=== PATIENT | male | born 1945 | race Caucasian/White ===

== ENCOUNTER 2025-04-11 14:33 | Outpatient (AMB) | payer MEDICARE, OTHER, SELFPAY ==
--- NOTE | 2025-04-11 14:46 | A.OFFVIS_ITS ---
Vital Signs 04/11/25 14:52 Height 5 ft 6 in Weight 188 lb BMI 30.3 BP 130/78 Blood Pressure Location Rt brachial Position Sitting Intake Visit Reasons: ENP-Restless Legs Intake Note: Patient referred for restless leg Allergies No Known Allergies Allergy (Verified 04/11/25 14:47) Medication List - Last Reconciled 04/11/25 by Libertad Rausch MD allopurinol mg PO amlodipine mg PO DAILY atorvastatin mg PO DAILY calcium carbonate (Calcium 600) 600 mg PO DAILY carboxymethylcellulose sodium 0.5% (Refresh Tears) 1 drp ophthalmic (eye) BID citalopram mg PO DAILY famotidine mg PO DAILY glucosamine HCl 1,500 mg PO DAILY hydrochlorothiazide mg PO DAILY HPI Comments Details: 79y/o male comes for evaluation of restless legs. It started more than 5 years where he feels leg spasms, leg movements, discomfort at rest, when he is trying to sleep. He feels like he needs to stretch or walk.ABout 6 mths ago his sciatica worsened which made his nocturnal legs spasms worse.His sciatica is better since he started with chiropractor which also improved his restless legs.He denies any creepy crawly sensations. He is sleeping OK now . He still has restless legs -starts around 60min after he goes to bed. He goes to bed at 12 am and the restless starts at 1 am and he walks around for 2-3 minutes and is able to fall sleep.He has loud snoring and has daytime sleepiness COUNT INCLUDES THE [facility] Medical History (Updated 04/11/25 @ 15:11 by Libertad Rausch MD) Hypersomnia Snoring GERD (gastroesophageal reflux disease) Cervicalgia Aortic anomaly Restless leg syndrome Sciatica of left side Gout Dyslipidemia Essential hypertension Tubular adenoma of colon Aortic dilatation Anxiety Allergic rhinitis Surgical History H/O hernia repair History of bunionectomy Social History Alcohol intake: never Patient Tobacco Use Status: Never used Tobacco Physical Exam Const General: cooperative, healthy appearing and comfortable Nutritional Appearance: overweight Orientation/consciousness: patient oriented x3 Eyes Pupils: Equal, round and reactive pupils present Neuro General: patient oriented x3, gait normal, tone normal, moves all extremities and no focal motor deficits Cranial nerves: Yes Facial sensation intact/muscles of mastication intact, Yes Equal, round and reactive pupils present, Yes Bilaterally intact EOM present, Yes Nystagmus not present, Yes Normal facial strength present, Yes Midline tongue present, Yes Symmetric palate elevation present and Yes Ability to bilaterally elevate shoulders present Cognition (Neuro): normal cognition Gait exam (Neuro): Normal gait present Motor exam (neuro): 5/5 motor strength present throughout and Normal motor muscle tone present throughout Deep tendon reflexes (DTR's): Right triceps reflex intensity grade: 1+, Left triceps reflex intensity grade: 1+, Rt Biceps (C5, C6): 1+, Left biceps reflex intensity grade: 1+, Right brachioradialis reflex intensity grade: 1+, Left brachioradialis reflex intensity grade: 1+, Right patellar reflex intensity grade: 2+ and Left patellar reflex intensity grade: 0 Coordination: [id number] test normal Assessment & Plan Assessment & Plan (1) Restless leg syndrome: Code(s): G25.81 - Restless legs syndrome Category: Medical (2) Snoring: Code(s): R06.83 - Snoring Category: Medical (3) Hypersomnia: Code(s): G47.10 - Hypersomnia, unspecified Category: Medical Plan He declines any medication OTC magnesium is helping his symptoms I will do a sleep study to evaluate for sleep apnea, PLMD Labs - B 12 tsh ferritin Vit D esr and cbc cmp. Orders: Orders RT PSG in-lab sleep study Today G25.81 - Restless legs syndrome, G47.10 - Hypersomnia, unspecified, R06.83 - Snoring Vitamin B12 and Folate Today G25.81 - Restless legs syndrome, G47.10 - Hypersomnia, unspecified Erythrocyte Sedimentation Rate Today G25.81 - Restless legs syndrome, G47.10 - Hypersomnia, unspecified Comprehensive Met. Panel Today G25.81 - Restless legs syndrome, G47.10 - Hypersomnia, unspecified Complete Blood Count Auto Diff Today G25.81 - Restless legs syndrome, G47.10 - Hypersomnia, unspecified TSH reflex Free T4 Today G25.81 - Restless legs syndrome, G47.10 - Hypersomnia, unspecified Vitamin D 25-OH (D2 and D3) Today G25.81 - Restless legs syndrome, G47.10 - Hypersomnia, unspecified Ferritin Today G25.81 - Restless legs syndrome, G47.10 - Hypersomnia, unspecified Coding Level of Care Code New Pt Level 4 (35770) Diagnoses Restless leg syndrome G25.81 Snoring R06.83 Hypersomnia G47.10
[2025-04-11 14:52] VITALS: BP 130/78; BMI 30.3
--- OUTSIDE RECORDS SUMMARY | 2025-04-11 16:15 | XMS_ITS | Clinical Summary ---
Author Organization [facility] Address [address] [place] [address] Phone Care Team Providers Care Beet Flumer Name Role Phone Cathy Page MD Primary Care Provider [phone] Allergies Active Allergy Reactions Criticality Noted Date Comments Other 03/03/2019 Seasonal allergies Medications cyclobenzaprine (FLEXERIL) 10 mg tablet Sig - Route: Take 1 Tablet by mouth daily. Prescribe by ROMMEL MCNULTY Active cetirizine (ZyrTEC) 10 mg tablet Take 1 Tablet by mouth daily. OTC Active multivitamin (MULTIPLE VITAMINS ORAL) Take 1 tablet by mouth 1 (one) time each day. Active glucosamine-cho ndroit-vit C-Mn (Glucosamine-Ch ondroitin Complx) capsule Glucosamine-Ch ondroit-Vit C-Mn (GLUCOSAMINE CHONDR 1500 COMPLX OR)-Take 1 tablet by mouth. Active polyvinyl alcohol/povidon e/PF (REFRESH CLASSIC, PF, OPHT) apply 1 Drop to the eye 2 times daily. Active hydrocortisone (ANUSOL-HC) [address] 1 Suppository rectally 2 times daily for 10 days. 04/17/20 17 Active omega-3 fatty acids 500 mg capsule 1 tablet 3 times daily Active citalopram (CeleXA) 10 mg tablet TAKE 1 TABLET BY MOUTH EVERY DAY 90 tablet 1 11/29/19 25 Active hydroCHLOROthia zide (MICROZIDE) 12.5 mg capsule TAKE 1 CAPSULE BY MOUTH EVERY DAY 90 capsule 1 01/04/20 25 Active allopurinoL (ZYLOPRIM) 100 mg tablet TAKE 3 TABLETS BY MOUTH EVERY DAY 270 tablet 1 01/04/20 25 Active amLODIPine (NORVASC) 5 mg tablet TAKE 1 TABLET BY MOUTH EVERY DAY 90 tablet 1 01/07/20 25 Active atorvastatin (LIPITOR) 10 mg tablet TAKE 1 TABLET BY MOUTH EVERY DAY 90 tablet 04/05/20 25 Active famotidine (PEPCID) 40 mg tablet TAKE 1 TABLET BY MOUTH EVERY DAY 90 tablet 04/05/20 25 Active famotidine (PEPCID) 40 mg tablet Take 1 tablet (40 mg total) by mouth 1 (one) time each day. 07/23/20 24 025 Discontinued atorvastatin (LIPITOR) 10 mg tablet Take 1 tablet (10 mg total) by mouth 1 (one) time each day. 05/17/20 24 025 Discontinued Active Problems Problem Noted Date Diagnosed Date Tubular adenoma of colon 08/13/2024 Thyroid nodule 06/04/2023 Aortic dilatation (CMS/HCC V24) 10/09/2020 Overview (08/13/2024): 4.1 cm, 2019 Branch retinal artery occlusion of right eye Overview (08/13/2024): 2020 Dr. Ramu Moreira patient also with macular degeneration in each eye and a posterior vitreous detachment in both eyes Essential hypertension 03/03/2019 Allergic rhinitis due to allergen 06/16/2015 Syncope 11/11/2014 Overview (08/13/2024): Likely vasovagal, tilt table test 2014 Ventral hernia 06/22/2014 Epididymal cyst 11/23/2012 Overview (08/13/2024): on right, asymptomatic Anxiety 11/01/2011 Dyslipidemia 10/08/2011 Overview (08/13/2024): High TG, Low dose statin caused LDL =30. Not on any statin Gout 05/07/2011 GERD (gastroesophageal reflux disease) 0 Overview (08/13/2024): EGD visually normal on 12/21/2010 on PPI rx, esophageal bx: Esophageal biopsies normal. Nonspecific abnormal finding in stool contents 0 03/22/2010 Colon polyps 07/18/2008 Overview (08/13/2024): Colonoscopy by Dr. Leiva 2005, solitary hyperplastic polyp. Small polyps x 2 at CN 03/29/2010: Cecal polyp was a tubular adenoma, sigmoid colon polyp was just polypoid normal mucosa. Colonoscopy again in 5 years Gastritis 07/18/2008 Overview (08/13/2024): S/P EGD, Dr. Leiva. Cervicalgia 10/16/2006 Overview (08/13/2024): IMPRESSION: Degenerative changes most advanced at the C5 through C7 disc spaces. Moderate to severe neural foraminal narrowing at C6-7 bilaterally and C5-6 on the right. Immunizations Name Administration Dates Next Due H1N1 Inj Preservative Free 10/31/2009 Influenza trivalent, 0.5mL ( Fluad) 65yo and older 07/12/2024,07/21/2023,07/15/2022,06/26,07/19/2020,07/24/2012,08/14/2011 ,07/23/2010,07/22/2009,08/24/2007,09/26 Influenza trivalent, 0.5mL, preservative free (Fluarix; FluLaval; Fluzone) ages 6mo and older (Afluria) 3 years and older 07/18/2008,10/14/2005 Influenza, Unspecified 07/14/2024,2022,07/24/2017,08/17 Moderna SARS-CoV-2 COVID-19, mRNA, LNP-S, preservative free 07/14/2024 Pfizer SARS-CoV-2 COVID-19, mRNA, LNP-S, preservative free 06/27/2021 Pneumococcal conjugate 13 va lent (Prevnar 13, PCV13) 2mo and older 02/25/2017 Pneumococcal polysaccharide 23 valent (Pneumovax 23) 2yo and older 06/22/2014,07/16/2007,10/14/2005 Respiratory syncytial virus (RSV), unspecified 10/15/2023 Td Tetanus diptheria (Tdvax) 7yo and older 10/31/2009 Tdap Tetanus diptheria acell ular pertussis (Boostrix; Adacel) 7yo and older 07/22/2024,11/23/2012 Zoster Live 12/23/2012 Zoster recombinant (Shingrix ) 19yo and older 10/11/2024,06/01/2024 Surgical History Surgery Date Site/Laterality Comments COLONOSCOPY 2005 PROCEDURE: HISTORICAL COLONOSCOPY; COMMENT: hyperplastic polyp. ESOPHAGOGASTRODUODENOSCOPY 2005 PROCEDURE: GA EGD TRANSORAL BIOPSY SINGLE/MULTIPLE; COMMENT: Esophagus normal, not on PPI treatment. Gastric biopsies negative for H. pylori. COLONOSCOPY 03/29/2010 PROCEDURE: HISTORICAL COLONOSCOPY; COMMENT: 2 small polyps: Tubular adenoma x 1, normal colonic mucosa x 1. ESOPHAGOGASTRODUODENOSCOPY 12/21/2010 PROCEDURE: GA EGD TRANSORAL BIOPSY SINGLE/MULTIPLE; COMMENT: Visually normal; esophageal bx: Esophageal biopsies normal. CATARACT EXTRACTION PROCEDURE: HISTORICAL CATARACT REMOVAL; COMMENT: bilateral COLONOSCOPY 07/18/2015 PROCEDURE: HISTORICAL COLONOSCOPY; COMMENT: 7 mm left colon polyp: tubular adenoma. Medical History Medical History Date Comments Cervicalgia 10/16/2006 DX:Cervicalgia; COMMENT: IMPRESSION: Degenerative changes most advanced at the C5 through C7 disc spaces. Moderate to severe neural foraminal narrowing at C6-7 bilaterally and C5-6 on the right. Gastritis 07/18/2008 DX:Gastritis; CO MMENT: S/P EGD, Dr. Leiva Colon polyps 07/18/2008 DX:Colon polyps; COMMENT: Colonoscopy by Dr. Leiva, due again 2009 GERD (gastroesophageal reflux disease) 03/22/2010 DX:GERD (gastroesophageal reflux disease) Epididymal cyst 11/23/2012 DX:Epididymal cy st Syncope 11/11/2014 DX:Syncope; COMM ENT: Likely vasovagal, tilt table test 2014 Hyperlipidemia 10/08/2011 DX:Hyperlipidemi a; COMMENT: Low dose statin caused LDL =30. Not on any statin Essential hypertension 03/03/2019 DX:Essent ial hypertension Tubular adenoma of colon DX:Tubu lar adenoma of colon Thyroid nodule 06/04/2023 DX:Thyroid nodul e Family History Medical History Relation Name Comments No Known Problems Aunt No Known Problems Brother No Known Problems Father No Known Problems Maternal Grandfather No Known Problems Maternal Grandmother Other: liver disease Mother pt can not specify, ? lead No Known Problems Other No Known Problems Paternal Grandfather Glaucoma Paternal Grandmother No Known Problems Sister No Known Problems Uncle Blindness Neg Hx Cataracts Neg Hx Macular degeneration Neg Hx Strabismus Neg Hx Relation Name Status Comments Aunt Brother Father Maternal Grandfather Maternal Grandmother Mother Other Paternal Grandfather Paternal Grandmother Sister Uncle Social History Tobacco Use Types Packs/Day Years Used Date Smoking Tobacco: Former Cigarettes Q uit: 10/27/2001 Smokeless Tobacco: Never Tobacco Cessation:Counseling Given: Not Answered Alcohol Use Standard Drinks/Week Comments No 0 (1 standard drink = 0.6 oz pur e alcohol) Housing Instability Answer Date Recorde d Are you worried that in the next 2 months you may not have stable housing? No 09/27/2024 Food Access & Nutrition Answer Date Rec orded Do you have access to a vari ety of food including fruits and vegetables? Yes 09/27/2024 Access to Healthcare Answer Date Record ed Within the last 3 months, ho lesly many times did you visit the emergency department for your medical care? 0 09/27/2024 Health Literacy Answer Date Recorded How often do you need to hav e someone help you when you read instructions, pamphlets, or other written material from your doctor or pharmacy? Never 09/27/2024 Caregiver: How often do you need to have someone help you when you read instructions, pamphlets, or other written material from your doctor or pharmacy? Not on file 09/27/2024 Financial Risk Answer Date Recorded How hard is it for you to pa y for the very basics like food, housing, medical care, and air conditioning / heating? Patient declined 09/27/2024 Transportation Answer Date Recorded Has the lack of transportati on kept you from meetings, work, or from getting things needed for daily living? No 09/27/2024 Has the lack of transportati on kept you from medical appointments or from getting medications? Patient declined 09/27/2024 Social Isolation Answer Date Recorded How often do you feel lonely or isolated from th ose around you? Never 09/27/2024 Food Risk Answer Date Recorded Within the past 12 months we worried whether our food would run out before we got money to buy more. Never true 09/27/2024 Within the past 12 months th e food we bought just didn't last and we didn't have money to get more. Never true 09/27/2024 Dependent Care Answer Date Recorded Do you need help finding or paying for care for your loved ones. For example, child welfare counselor or elderly care for an older adult? Patient declined 09/27/2024 Education Answer Date Recorded Do you think completing more education or training, like finishing a GED, going to college, or learning a trade, would be helpful for you? N/A 09/27/2024 Employment and Income Answer Date Recor ded During the last four weeks, have you been actively looking for work? Patient declined 09/27/2024 Living Situation Answer Date Recorded What is your living situation? 1 11/28/2023 Sex and Gender Information Value Date Recorded Sex Assigned at Not on file Legal Sex Male 6:46 PM EST Gender Identity Not on file Sexual Orientation Not on file Obstetrics History Last Filed Vital Signs Vital Sign Reading Time Taken Comments Blood Pressure 122/68 01/04/2025 1:08 PM EDT Pulse 64 09/29/2024 2:38 PM EST Temperature 36.1 ??C (96.9 ??F) 09/29/2024 2:38 PM ES T Respiratory Rate 12 09/29/2024 2:38 PM EST Oxygen Saturation - - Inhaled Oxygen Concentration - - Weight 85.3 kg (188 lb) 01/04/2025 1:08 PM EDT Height 167.6 cm (5' 6 ) 01/04/2025 1:08 PM EDT Body Mass Index 30.34 01/04/2025 1:08 PM EDT Plan of Treatment Upcoming Encounters Date Type Department Care Team (Late st Contact Info) Description 06/14/2025 9:00 AM EDT Office Visit Adult Medicine [facility] [address] [place] [address] Cathy Page MD [address] [place] [address] Health Maintenance Due Date Last Done Comments RSV Immunization Adult Patients (1 - 1-dose 75+ series) 2019 10/15/2023 Medicare Annual Wellness Visit 11/17/2024 11/17/2023 COVID-19 Vaccine ( season) 2025 07/14/2024, 07/12/2024, 07/21/2023, Additional history exists Hypertension/CHF/CAD Annual BMP Blood Test 09/20/2025 09/20/2024, 11/12/2023 Depression Screening 09/27/2025 09/27/2024, 11/17/19 24 Social Influencers of Health Screening 09/27/2025 09/27/2024 Falls Risk Assessment 09/29/2025 09/29/2024, 024 Colorectal Cancer Screening: Colonoscopy 12/13/2026 12/13/2021 Cholesterol Screening (Lipid Panel) 11/12/2028 11/12/2023 DTaP,Tdap,and Td Vaccines (4 - Td or Tdap) 07/22/2034 07/22/2024, 11/23/2012, 10/31/2009 Pneumococcal Vaccine: 50+ Years Completed 02/25/2017, 06/22/2014, 07/16/2007, Additional history exists RSV Immunization Patients Under 20 months Aged Out 10/15/2023 No longer eligible based on patient's age to complete this topic Influenza Vaccine Completed 07/14/2024, , 07/21/2023, Additional history exists Zoster Vaccines Completed 10/11/2024, 03/2024, 12/23/2012 HIB Vaccines Aged Out No longer eligi ble based on patient's age to complete this topic HPV Vaccines Aged Out No longer eligi ble based on patient's age to complete this topic Hepatitis A Vaccines Aged Out No long er eligible based on patient's age to complete this topic Hepatitis B Vaccines Aged Out No long er eligible based on patient's age to complete this topic IPV Vaccines Aged Out No longer eligi ble based on patient's age to complete this topic MMR Vaccines Aged Out No longer eligi ble based on patient's age to complete this topic Meningococcal ACWY Vaccine Aged Out N o longer eligible based on patient's age to complete this topic Meningococcal B Vaccine Aged Out No l onger eligible based on patient's age to complete this topic Varicella Vaccines Aged Out No longer eligible based on patient's age to complete this topic Procedures Procedure Name Priority Date/Time Associated Diagnosis Comments BASIC METABOLIC PANEL Routine 09/20/2024 2:22 PM EST Blood glucose elevated DEPRESSION SCREENING Routine 11/17/2023 FALLS RISK ASSESSMENT Routine 11/17/2023 LIPID PANEL Routine 11/12/2023 HM COLONOSCOPY Routine 12/13/2021 from Last 3 Months or Most Recently Relevant to Health Maintenance Results * (ABNORMAL) Basic metabolic panel (09/20/2024 2:22 PM EST) Sodium 142 133 - 145 mmol/L LAB CHEMISTRY METHOD 09/20/2024 7:[address] [facility] Potassium 3.5 3.5 - 5.5 mmol/L LAB CHEMISTRY METHOD 09/20/2024 7:[address] [facility] Chloride 108 96 - 110 mmol/L LAB CHEMISTRY METHOD 09/20/2024 7:[address] [facility] CO2 27 21 - 32 mmol/L LAB CHEMISTRY METHOD 09/20/2024 7:[address] [facility] Anion Gap 7 3 - 11 LAB CHEMISTRY METHOD 09/20/2024 7:[address] [facility] Glucose 171(H) 70 - 100 mg/dL LAB CHEMISTRY METHOD 09/20/2024 7:[address] [facility] BUN 18 5 - 25 mg/dL LAB CHEMISTRY METHOD 09/20/2024 7:[address] [facility] Creatinine 1.26 0.70 - 1.30 mg/dL LAB CHEMISTRY METHOD 09/20/2024 7:[address] [facility] eGFR 58(L) >=60 mL/min/1. 73m2 LAB CHEMISTRY METHOD 09/20/2024 7:[address] [facility] Comment:Calculation based on the??Chronic Kidney Disease Epidemiology Collaboration (CKD-EPI) equation refit??without adjustment for race. BUN/Creatinine Ratio 14.3 LAB CHEMISTRY METHOD 09/20/2024 7:15 PM EST [facility] Calcium 9.7 8.5 - 10.5 mg/dL LAB CHEMISTRY METHOD 09/20/2024 7:15 PM EST [facility] Blood Venous blood specimen / Unknown Venipuncture / Unknown 09/20/2024 2:22 PM EST 09/20/2024 2:22 PM EST Cathy Page MD LAB BLOOD ORDERABLES Final Resul t [facility] [address] [place] [address], * Falls Risk Assessment (11/17/2023) Pathologist [facility] Falls Risk Assessment abstracted Historical Provider HEALTH MAINTENANCE Final Result * Depression Screening (11/17/2023) Pathologist [facility] Depression Screening abstracted Historical Provider HEALTH MAINTENANCE Final Result * (ABNORMAL) Lipid panel (11/12/2023) Pathologist [facility] LDL/HDL Ratio 4 0 - 4 Triglycerides 242(A) 0 - 150 mg/dL Cholesterol 154 0 - 200 mg/dL HDL 43 >=40 mg/dL LDL Cholesterol 63 0 - 100 mg/dL Blood Venous blood specimen / Unknown Historical Provider LAB BLOOD ORDERABLES Ayanna l Result * Colonoscopy (12/13/2021) Pathologist [facility] Colonoscopy no interpretation , abstracted Anatomical Region Laterality Modality Other Historical Provider HEALTH MAINTENANCE Final Result from Last 3 Months or Most Recently Relevant to Health Maintenance Insurance MEDICARE [facility] [address] [place] [id number] Care Teams Beet Flumer Relationship Specialty Start Date End Date Cathy Page MD [address] [place] [address] PCP - General 10/05/00
== END 2025-04-11 15:15 | disposition home or self-care (01) ==
LOC: HO.HSMS 14:34
PROVIDERS: PCP Internal Medicine; Visit Provider Psychiatry & Neurology Neurology
DX: G25.81 Restless legs syndrome (principal); R06.83 Snoring; G47.10 Hypersomnia, unspecified
CPT/HCPCS: 99204

== ENCOUNTER 2025-04-11 14:33 | Outpatient (REF) | payer OTHER, MEDICARE, SELFPAY ==
[2025-04-11 17:44] LABS: MANUAL DIFF FLAG NO
[2025-04-11 17:51] LABS: Basophils Absolute Auto 0.1 X10*3/uL (0.0-0.2); Basophils Percent Auto 1.3 % (0-2); Eosinophils Absolute Auto 0.6 X10*3/uL (0.0-0.4); Eosinophils Percent Auto 7.5 % (0-4); Hematocrit 45.1 % (42.0-52.0); Hemoglobin 15.8 g/dl (14.0-18.0); Imm Gran Abs Auto 0.01 X10*3/uL (0.00-0.03); Imm Gran Pct Auto 0.1 % (0.0-0.4); Lymphocytes Percent Auto 26.8 % (20-40); Mean Corpuscular Hemoglobin 32.9 pg (27.0-33.0); Monocytes Percent Auto 13.2 % (2-11); Neutrophils Absolute Auto 3.8 x10*3/uL (2.0-8.3); Neutrophils Percent Auto 51.1 % (45-73); Platelet Count 221 X10*3/uL (160-400); Red Cell Distribution Width 13.2 % (11.0-16.0); White Blood Count 7.5 X10*3/uL (4.8-10.8)
[2025-04-11 18:11] LABS: Albumin Level 4.5 g/dL (3.5-5.0); Alkaline Phosphatase 88 U/L (39-117); Anion Gap 12 (12-20); Aspartate Amino Transferase 48 U/L (5-37); Blood Urea Nitrogen 16 mg/dL (9-16); Calcium 9.7 mg/dL (8.4-10.2); Carbon Dioxide 27 mmol/L (22-29); Chloride 108 mmol/L (96-108); Estimated Glomerular Filt Rate > 60; Glucose Random 66 mg/dL (60-115); Potassium 3.8 mmol/L (3.3-5.1); Sodium 143 mmol/L (135-145); Total Protein 7.3 g/dL (6.5-8.0)
[2025-04-11 18:13] LABS: Alanine Aminotransferase 65 U/L (0-40)
[2025-04-11 18:24] LABS: Ferritin 121 ng/mL (20-250)
[2025-04-11 18:34] LABS: Erythrocyte Sedimentation Rate 2 MM/HR (0-15)
[2025-04-11 18:38] LABS: Folate 14.9 ng/mL (> or = 4.0); Vitamin B12 542 pg/mL (200-900)
[2025-04-15 15:24] LABS: Vitamin D 25-OH, D2 <4 ng/mL; Vitamin D 25-OH, D3 33 ng/mL; Vitamin D 25-OH, Total 33 ng/mL (30-100)
== END 2025-04-11 14:34 | disposition home or self-care (01) ==
LOC: HO.HKASLDS 14:33
PROVIDERS: PCP Internal Medicine; Visit Provider Psychiatry & Neurology Neurology
DX: G47.10 Hypersomnia, unspecified (principal); G25.81 Restless legs syndrome
CPT/HCPCS: 36415; 80053; 82306; 82607; 82728; 82746; 84443; 85025; 85652

== ENCOUNTER → 2025-05-02 20:30 | Outpatient (REF) | payer MEDICARE, OTHER, SELFPAY | LOC: HO.SL 20:30 | PROVIDERS: PCP Internal Medicine; Visit Provider Psychiatry & Neurology Neurology | DX: G25.81 Restless legs syndrome (principal); G47.10 Hypersomnia, unspecified; R06.83 Snoring | CPT/HCPCS: 95810 ==

== ENCOUNTER → 2025-05-02 20:30 | Outpatient (BNV) | payer MEDICARE, OTHER, SELFPAY | PROVIDERS: PCP Internal Medicine; Visit Provider Psychiatry & Neurology Neurology | DX: R06.83 Snoring (principal) | CPT/HCPCS: 95810 ==